=== PATIENT | male | born 1970 ===

== ENCOUNTER 2024-12-24 10:45 | Inpatient (IN) | payer BC, OTHER ==
[~2024-12-24] VITALS: Ht 185.4 cm; Wt 121.0 kg
[2024-12-24] MEDS ORDERED: BUPRENORPHINE-1 EACH SL (12:12)
[2024-12-24] MEDS ORDERED: AMIT75 PO (12:13)
[2024-12-24] MEDS ORDERED: TOPI50 PO (12:13)
[2024-12-24] MEDS ORDERED: Morphine Sulfate 4 MG/1 ML Injection IV ONE (12:20)
[2024-12-24 12:26] LABS: BASOPHILS ABSOLUTE AUTO 0.05 K/mm3 (0.00-0.23); BASOPHILS PERCENT AUTO 1 % (0-2); EOSINOPHILS ABSOLUTE AUTO 0.39 K/mm3 (0.00-0.68); EOSINOPHILS PERCENT AUTO 4 % (0-6); Hematocrit 37.2 % (37.0-53.0); Hemoglobin 12.9 g/dL (13.5-17.5); IMMATURE GRAN ABSOLUTE AUTO 0.03 K/mm3 (0.00-0.10); IMMATURE GRAN PERCENT AUTO 0 % (0-1); LYMPHOCYTES ABSOLUTE AUTO 1.26 K/mm3 (0.84-5.20); LYMPHOCYTES PERCENT AUTO 14 % (21-46); MONOCYTES ABSOLUTE AUTO 0.99 K/mm3 (0.16-1.47); MONOCYTES PERCENT AUTO 11 % (4-13); Mean Corpuscular HGB 32.2 pg (26.0-34.0); Mean Corpuscular HGB Conc 34.7 g/dL (31.5-36.5); Mean Corpuscular Volume 93 fL (80-100); Mean Platelet Volume 9.7 fL (9.1-12.4); NEUTROPHILS ABSOLUTE AUTO 6.31 K/mm3 (1.96-9.15); NEUTROPHILS PERCENT AUTO 70 % (41-73); Platelet Count 183 K/mm3 (150-400); RDW Standard Deviation 47.6 fL (35.1-46.3); Red Blood Cell Count 4.01 M/mm3 (4.30-5.90); White Blood Cell Count 9.03 K/mm3 (4.00-11.30)
[2024-12-24 13:22] LABS: Bilirubin, Total 0.4 mg/dL (0.1-1.0); Bun/Creatinine Ratio 16.7 (12.0-20.0); Calcium, Blood 9.5 mg/dL (8.5-10.1); Creatinine, Blood 1.14 mg/dL (0.60-1.20); Globulin, Blood 3.9 g/dL (2.2-4.0); Potassium, Blood 3.9 mmol/L (3.5-5.5); Total Protein, Blood 7.9 g/dL (6.4-8.2)
[2024-12-24 13:37] LABS: Anti-Xa UFH, PHA Monitoring <0.10 IU/mL; International Normalized Ratio 1.04; Prothrombin Time Results 11.4 Sec (9.7-11.5)
[2024-12-24] MEDS ORDERED: Dose Adjust by Pharmacy XX STA ×2 (13:42→22:58)
[2024-12-24] MEDS ORDERED: Heparin Sodium 5000 Units/ML 1ML MDV IV ONE (13:45)
[2024-12-24] MEDS ORDERED: Heparin Sodium,Porcine/0.5 NS 500 ML IV SCH (13:45)
[2024-12-24] MEDS ORDERED: LORazepam 1 MG Tab PO PRN (14:20)
[2024-12-24] MEDS ORDERED: Prozac20 MG PO (16:32)
[2024-12-24] MEDS ORDERED: Vitamin D1000 UNI1 PO (16:34)
[2024-12-24 16:37] VITALS: BP 124/83
--- NOTE | 2024-12-24 17:02 | NUR ---
PT ARRIVED TO ROOM AT 1630 AOX4 AND COOPERATIVE OF CARE. PT IS INDEPENDENT AND HAS BEEN ORIENTED TO CALL LIGHT AND ROOM. PT REPORTED R LEG PAIN AND BUTT NOTFIED AND STATED MEDICATION WILL BE ADDED TO EMAR. CALL LIGHT IS IN REACH AND WILL CONTINUE TO MONITOR.
[2024-12-24] MEDS ORDERED: OxyCODONE 5 mg/Acetamin 325 mg TABLET PO ONE (17:25)
[2024-12-24] MEDS ORDERED: OxyCODONE 5 mg/Acetamin 325 mg TABLET PO PRN (17:25)
[2024-12-24] MEDS ORDERED: Nicotine 21 MG PATCH TOP SCH (18:15)
[2024-12-24 19:45] VITALS: BP 130/84
[2024-12-24] MEDS ORDERED: Morphine Sulfate 4 MG/1 ML Injection IV PRN (20:15)
[2024-12-24] MEDS ORDERED: Amitriptyline HCl 25 MG Tab PO SCH (21:00)
--- NOTE | 2024-12-24 23:55 | NUR ---
PT INFOMRED THIS NURSE THAT PT HAD EPISODE OF SOB ON SATRUDAY AND IS CONCERNED FOR POSSIBLE PE D/T PT HAVING A DVT. PT IS ASYMPTOMATIC, VSS, HEPARIN INFUSING ORDERED AND MD NOTIFIED OF 'S CONCERN. NO NEW ORDERS, CONTINUE TO MONITOR AT THIS TIME.
[2024-12-25 04:36] VITALS: BP 132/86
[2024-12-25 06:08] LABS: BASOPHILS ABSOLUTE AUTO 0.07 K/mm3 (0.00-0.23); BASOPHILS PERCENT AUTO 1 % (0-2); EOSINOPHILS ABSOLUTE AUTO 0.52 K/mm3 (0.00-0.68); EOSINOPHILS PERCENT AUTO 5 % (0-6); Hematocrit 36.3 % (37.0-53.0); Hemoglobin 12.3 g/dL (13.5-17.5); IMMATURE GRAN ABSOLUTE AUTO 0.05 K/mm3 (0.00-0.10); IMMATURE GRAN PERCENT AUTO 1 % (0-1); LYMPHOCYTES PERCENT AUTO 20 % (21-46); MONOCYTES ABSOLUTE AUTO 0.97 K/mm3 (0.16-1.47); MONOCYTES PERCENT AUTO 10 % (4-13); Mean Corpuscular HGB 31.9 pg (26.0-34.0); Mean Corpuscular HGB Conc 33.9 g/dL (31.5-36.5); Mean Corpuscular Volume 94 fL (80-100); Mean Platelet Volume 9.8 fL (9.1-12.4); NEUTROPHILS ABSOLUTE AUTO 6.21 K/mm3 (1.96-9.15); NEUTROPHILS PERCENT AUTO 64 % (41-73); Platelet Count 206 K/mm3 (150-400); RDW Standard Deviation 48.8 fL (35.1-46.3); Red Blood Cell Count 3.86 M/mm3 (4.30-5.90); White Blood Cell Count 9.72 K/mm3 (4.00-11.30)
[2024-12-25 06:31] LABS: Albumin, Blood 3.6 g/dL (3.4-5.0); Albumin/Globulin Ratio 0.9 (0.8-1.8); Bilirubin, Total 0.4 mg/dL (0.1-1.0); Bun/Creatinine Ratio 13.5 (12.0-20.0); Calcium, Blood 8.9 mg/dL (8.5-10.1); Creatinine, Blood 1.04 mg/dL (0.60-1.20); Globulin, Blood 3.8 g/dL (2.2-4.0); Potassium, Blood 3.4 mmol/L (3.5-5.5); Total Protein, Blood 7.4 g/dL (6.4-8.2)
[2024-12-25] MEDS ORDERED: Dose Adjust by Pharmacy XX STA ×2 (06:44→19:28)
--- NOTE | 2024-12-25 07:41 | NUR ---
SUPERVISOR METAL CANS SUMMARY: PT ADMITTED FOR RLE DVT. SEE PREVIOUS NOTE RE CONCERN OVER SOB INCIDENT ON TUESDAY. PT RESPIRATIONS WNL AND SATS ON ROOM AIR ABOVE 92%. HEPARIN INFUSING ORDERED. CONFIRMED ORDER WITH DAY SHIFT NURSE AT SHIFT REPORT. PT MEDICATED T/O SHIFT FOR RLE PAIN. PT NOTED TO HAVE INCREASE IN PAIN AND NEW ORDER OBTAINED FOR MORPHINE 1-2MG IV Q4H PRN SEVERE PAIN. PT RATES PAIN AT 7-8/10. PT REPORTS MORPHINE IS EFFECTIVE BUT FEELS THAT HIS PAIN HAS WORSENED. PT EXPRESSES CONCERN OVER WORSENED PAIN AND DESIRE FOR PT TO GO GO [place] TODAY. DAY SHIFT RN INFORMED OF THIS DURING SHIFT CHANGE. PT NPO AT [facility] IN ANTICIPATION OF HAVING THROMBECTOMY. PT INDEPENDENT IN ROOM WITH CARES. BED IN LOWEST POSITION. CARES ONGOING ORDERED.
[2024-12-25 08:46] VITALS: BP 108/71
[2024-12-25] MEDS ORDERED: Topiramate 25 MG Tab PO SCH (09:00)
[2024-12-25] MEDS ORDERED: TOPIRAMATE PO SCH (09:00)
[2024-12-25] MEDS ORDERED: FLUoxetine HCL 20 MG CAP PO SCH (09:00)
[2024-12-25] MEDS ORDERED: FUROSEMIDE20 MG PO (10:52)
[2024-12-25] MEDS ORDERED: BRIXADI128 MG/0.3 SC (11:25)
[2024-12-25] MEDS ORDERED: HYDROmorphone HCl/Pf 1MG SYR IV PRN (16:10)
--- NOTE | 2024-12-25 17:13 | NUR ---
NO ACUTE CHANGES THIS SHIFT. PT HAS BEEN PAINFUL TO RLE. TREATED PER EMAR. PLAN FOR PT TO HAVE PROCEDURE TOMORROW AND WILL BE NPO AT MIDNIGHT. PT IS ALERT AND ORIENTED X4, INDEPENDENT, CALLS FOR ASSISTANCE NEEDED.
[2024-12-25 19:16] VITALS: BP 123/63
[2024-12-26 03:02] VITALS: BP 113/68
[2024-12-26 05:13] LABS: BASOPHILS ABSOLUTE AUTO 0.08 K/mm3 (0.00-0.23); BASOPHILS PERCENT AUTO 1 % (0-2); EOSINOPHILS ABSOLUTE AUTO 0.66 K/mm3 (0.00-0.68); EOSINOPHILS PERCENT AUTO 7 % (0-6); Hematocrit 39.7 % (37.0-53.0); Hemoglobin 13.1 g/dL (13.5-17.5); IMMATURE GRAN ABSOLUTE AUTO 0.06 K/mm3 (0.00-0.10); IMMATURE GRAN PERCENT AUTO 1 % (0-1); LYMPHOCYTES ABSOLUTE AUTO 2.37 K/mm3 (0.84-5.20); LYMPHOCYTES PERCENT AUTO 24 % (21-46); MONOCYTES ABSOLUTE AUTO 1.31 K/mm3 (0.16-1.47); MONOCYTES PERCENT AUTO 13 % (4-13); Mean Corpuscular Volume 97 fL (80-100); Mean Platelet Volume 9.6 fL (9.1-12.4); NEUTROPHILS ABSOLUTE AUTO 5.56 K/mm3 (1.96-9.15); NEUTROPHILS PERCENT AUTO 55 % (41-73); Platelet Count 210 K/mm3 (150-400); RDW Coefficient Variation 14.4 % (11.7-14.2); RDW Standard Deviation 51.3 fL (35.1-46.3); Red Blood Cell Count 4.09 M/mm3 (4.30-5.90); White Blood Cell Count 10.04 K/mm3 (4.00-11.30)
--- NOTE | 2024-12-26 05:35 | NUR ---
PATIENT NPO AT MIDNIGHT EXCEPT FOR SIP WITH MEDS. PAIN MANAGED WITH PRNS FREQUENTLY. LEFT LEG REMAIN UNCHANGED AND PEDAL PULSE 2+
[2024-12-26] MEDS ORDERED: Dose Adjust by Pharmacy XX STA (05:55)
[2024-12-26 07:40] VITALS: BP 111/72
--- NOTE | 2024-12-26 13:09 | NUR ---
PER SIN KITCHEN. DOES NOT PLAN ON CONTINUING WITH PROCEDURE AT THIS TIME. DR. BAINS NOTIFIED, OK TO ORDER DIET FROM PT. DR. BAINS TO FOLLOW UP WITH DR. DAVIS.
[2024-12-26] MEDS ORDERED: Apixaban 5 MG Tab PO ONE (16:00)
[2024-12-26] MEDS ORDERED: ELIQUIS5 M2 PO (16:27)
[2024-12-26] MEDS ORDERED: Percocet 5-3251 EACH PO (16:28)
--- NOTE | 2024-12-26 18:05 | NUR ---
PT DISCHARGED HOME WITH SPOUSE AT BEDSIDE. DISCHARGE INSTRUCTIONS DISCUSSED WITH PT AND SPOUSE, EMPHASIZED RISK OF BLEEDING DUE TO NEW BLOOD THINNER MEDICAITONS. PT TO FOLLOW UP WITH PCP AND DR. DAVIS. MEDICATION FAXED TO [facility] REQUESTED.
[2024-12-28 10:54] LABS: FACTOR V LEIDEN F5 R506Q MUTAT Negative; FACV SPECIMEN Whole Blood
== END 2024-12-26 17:51 | disposition home or self-care (01) | DRG 301 ==
LOC: ER 10:45 → MEDS 10:46
PROVIDERS: Emergency Medicine; ADMIT Hospitalist
DX: I82.421 Acute embolism and thrombosis of right iliac vein (principal); G43.909 Migraine, unspecified, not intractable, without status migrainosus; F41.9 Anxiety disorder, unspecified; R63.4 Abnormal weight loss; F19.10 Other psychoactive substance abuse, uncomplicated; Z68.34 Body mass index [BMI] 34.0-34.9, adult; Z79.899 Other long term (current) drug therapy; Z88.8 Allergy status to other drugs, medicaments and biological substances; Z87.891 Personal history of nicotine dependence; Z87.19 Personal history of other diseases of the digestive system
CPT/HCPCS: 36415; 80053; 81241; 85025; 85520; 85610; 85730; 93971; 96365; 96375; 96376; 99285-25; A9270; G0378; J1171; J1644; J2270

== ENCOUNTER 2025-01-03 14:37 | Observation (INO) | payer OTHER ==
[~2025-01-03] VITALS: Ht 185.4 cm; Wt 122.5 kg
[~2025-01-03 14:37] MED LIST: AMIT75 PO; BRIXADI128 MG/0.3 SC; BUPRENORPHINE-1 EACH SL; ELIQUIS5 M2 PO; FUROSEMIDE20 MG PO; Percocet 5-3251 EACH PO; Prozac20 MG PO; TOPI50 PO; Vitamin D1000 UNI1 PO
[2025-01-03 15:19] LABS: BASOPHILS ABSOLUTE AUTO 0.09 K/mm3 (0.00-0.23); BASOPHILS PERCENT AUTO 1 % (0-2); EOSINOPHILS ABSOLUTE AUTO 0.57 K/mm3 (0.00-0.68); EOSINOPHILS PERCENT AUTO 8 % (0-6); Hemoglobin 12.3 g/dL (13.5-17.5); IMMATURE GRAN ABSOLUTE AUTO 0.06 K/mm3 (0.00-0.10); IMMATURE GRAN PERCENT AUTO 1 % (0-1); LYMPHOCYTES ABSOLUTE AUTO 2.28 K/mm3 (0.84-5.20); LYMPHOCYTES PERCENT AUTO 30 % (21-46); MONOCYTES ABSOLUTE AUTO 0.73 K/mm3 (0.16-1.47); MONOCYTES PERCENT AUTO 10 % (4-13); Mean Corpuscular HGB 32.5 pg (26.0-34.0); Mean Corpuscular HGB Conc 33.2 g/dL (31.5-36.5); Mean Corpuscular Volume 98 fL (80-100); Mean Platelet Volume 8.7 fL (9.1-12.4); NEUTROPHILS ABSOLUTE AUTO 3.89 K/mm3 (1.96-9.15); NEUTROPHILS PERCENT AUTO 51 % (41-73); Platelet Count 395 K/mm3 (150-400); RDW Standard Deviation 50.6 fL (35.1-46.3); Red Blood Cell Count 3.78 M/mm3 (4.30-5.90); White Blood Cell Count 7.62 K/mm3 (4.00-11.30)
[2025-01-03 15:39] LABS: Albumin, Blood 3.6 g/dL (3.4-5.0); Albumin/Globulin Ratio 0.9 (0.8-1.8); Bilirubin, Total 0.2 mg/dL (0.1-1.0); Bun/Creatinine Ratio 10.5 (12.0-20.0); Calcium, Blood 8.7 mg/dL (8.5-10.1); Creatinine, Blood 0.86 mg/dL (0.60-1.20); Globulin, Blood 3.8 g/dL (2.2-4.0); Potassium, Blood 3.6 mmol/L (3.5-5.5); Total Protein, Blood 7.4 g/dL (6.4-8.2)
[2025-01-03] MEDS ORDERED: LORazepam 2 MG/ML 1ML Injection IV ONE (17:20)
[2025-01-03] MEDS ORDERED: Acetaminophen 325 MG TABLET PO PRN ×2 (17:25→18:15)
[2025-01-03] MEDS ORDERED: Ondansetron HCl 2 MG / ML 2ML Vial IV PRN (17:30)
[2025-01-03] MEDS ORDERED: Naloxone HCl 0.4MG / ML 1ML Vial IV PRN ×2 (18:15)
[2025-01-03] MEDS ORDERED: OxyCODONE HCL 5 MG TAB PO PRN (18:15)
[2025-01-03] MEDS ORDERED: FentaNYL Citrate 50 MCG/ML 2 ML Injection IV PRN (18:20)
[2025-01-03 18:45] VITALS: BP 124/79
--- NOTE | 2025-01-03 19:14 | NUR ---
SHIFT SUMMARY PT A&OX4. PT ADMITTED DUE TO DVT. PT ON TELE. PT TRANSFERRED SELF FROM ER WHEELCHAIR TO BED. PT ORIENTED TO ROOM/CALL LIGHT/ FALL PRECAUTIONS. VSS. PT NPO FOR R THROMBECTOMY TOMORROW. QUICK ADMIT COMPLETE, WILL LET NIGHT RN KNOW ADMISSION ASSESS NEEDS COMPLETED. PT ON TELE. PT Q6 CBG. PT IN BED, BED IN LOWEST POSITION, CALL LIGHT IN REACH.
[2025-01-03 19:16] VITALS: BP 128/74
[2025-01-03] MEDS ORDERED: LORazepam 1 MG Tab PO ONE (20:50)
[2025-01-03] MEDS ORDERED: Docusate Sodium 100 MG Cap PO SCH (21:00)
[2025-01-03] MEDS ORDERED: Apixaban 5 MG Tab PO SCH (21:00)
[2025-01-03 23:10] VITALS: BP 139/91
[2025-01-04] VITALS (13 sets, daily range): BP systolic 122–183; BP diastolic 72–102
[2025-01-04] MEDS ORDERED: Lactated Ringer's 1,000 ML IV SCH
[2025-01-04] MEDS ORDERED: OxyCODONE 5 mg/Acetamin 325 mg TABLET PO PRN (01:05)
[2025-01-04 05:23] LABS: BASOPHILS ABSOLUTE AUTO 0.07 K/mm3 (0.00-0.23); BASOPHILS PERCENT AUTO 1 % (0-2); EOSINOPHILS ABSOLUTE AUTO 0.55 K/mm3 (0.00-0.68); EOSINOPHILS PERCENT AUTO 9 % (0-6); Hematocrit 33.5 % (37.0-53.0); Hemoglobin 11.3 g/dL (13.5-17.5); IMMATURE GRAN ABSOLUTE AUTO 0.03 K/mm3 (0.00-0.10); IMMATURE GRAN PERCENT AUTO 1 % (0-1); LYMPHOCYTES ABSOLUTE AUTO 2.22 K/mm3 (0.84-5.20); LYMPHOCYTES PERCENT AUTO 35 % (21-46); MONOCYTES ABSOLUTE AUTO 0.74 K/mm3 (0.16-1.47); MONOCYTES PERCENT AUTO 12 % (4-13); Mean Corpuscular HGB 32.5 pg (26.0-34.0); Mean Corpuscular HGB Conc 33.7 g/dL (31.5-36.5); Mean Corpuscular Volume 96 fL (80-100); Mean Platelet Volume 8.6 fL (9.1-12.4); NEUTROPHILS PERCENT AUTO 43 % (41-73); Platelet Count 360 K/mm3 (150-400); RDW Standard Deviation 49.5 fL (35.1-46.3); Red Blood Cell Count 3.48 M/mm3 (4.30-5.90); White Blood Cell Count 6.31 K/mm3 (4.00-11.30)
[2025-01-04 05:55] LABS: Albumin, Blood 2.9 g/dL (3.4-5.0); Albumin/Globulin Ratio 0.9 (0.8-1.8); Bilirubin, Total 0.2 mg/dL (0.1-1.0); Bun/Creatinine Ratio 12.7 (12.0-20.0); Calcium, Blood 8.5 mg/dL (8.5-10.1); Creatinine, Blood 0.87 mg/dL (0.60-1.20); Globulin, Blood 3.4 g/dL (2.2-4.0); Magnesium, Blood 2.2 mg/dL (1.6-2.4); Potassium, Blood 3.7 mmol/L (3.5-5.5); Total Protein, Blood 6.3 g/dL (6.4-8.2)
[2025-01-04] MEDS ORDERED: Buprenorphine HCL/Naloxone HCL 8MG-2MG Tab SL PRN (05:55)
--- NOTE | 2025-01-04 06:43 | NUR ---
pt admit last night for dvt/ pain rle managed with prns. pt asks multi times to eat. educated on the need to be npo. pt verbalized understanding
--- NOTE | 2025-01-04 07:37 | NUR ---
AM ASSESSMENT NOTE: PATIENT ADMITTED 01/04 FOR DVT TO [facility]. PER ED NOTE, DR. DAVIS (IR) WAS CONSULTED 01/03/25. PATIENT RECEIVED PO ELIQUIS DOSE LAST NIGHT. PATIENT CURRENTLY NPO FOR POSSIBLE THROMBECTOMY PER NOC RN. THIS RN SPOKE EDY HILLS VIA [facility] AT 0730 TO INQUIRE PLAN OF CARE. PER EDY, PATIENT IT'S NOT ON THE LIST FOR PROCEDURE TODAY, BUT SHE WILL FURTHER INVESTIGATE AND CALL THIS RN BACK FOR FURTHER DETAILS. FRATERNITY ADVISER NERY ARE AWARE OF THIS CONCERN.
[2025-01-04] MEDS ORDERED: Topiramate 25 MG Tab PO SCH (09:00)
[2025-01-04] MEDS ORDERED: FLUoxetine HCL 20 MG CAP PO SCH (09:00)
[2025-01-04] MEDS ORDERED: Cholecalciferol 1000 Unit Tablet (=25MCG) PO SCH (09:00)
[2025-01-04] MEDS ORDERED: LORazepam 1 MG Tab PO PRN (09:20)
[2025-01-04 10:49] LABS: Anti-Xa UFH, PHA Monitoring 0.36 IU/mL; International Normalized Ratio 1.01; Prothrombin Time Results 11.1 Sec (9.7-11.5)
[2025-01-04] MEDS ORDERED: Heparin Sodium,Porcine/0.5 NS 500 ML IV SCH (10:55)
--- NOTE | 2025-01-04 15:04 | NUR ---
Spiritual care referral Mariano (pt) is awake and alert and lying up in his bed awaiting a procedure for blood clots in his leg. He is joined at bedside by his spouse Rosey. Life review conducted. 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 Pt's spouse has recently been diagnosed with breast cancer and on top of other complications is feeling overwhelmed. Provided encouragement and compassionate listening. Spiritual assessment conducted. Pt and spouse have been approached by [facility] missionaries and are currently investigating the alley further. Provided suggestion for local spiritual community known to sales agent pest control service to recovering addicts ([employer]) Addressed social stigmas surrounding drug use and affirmed them in their journey of recovery. Spouse appears more calm following discussion. Prayed with pt while spouse was on the phone, he verbally expressed gratitude for the visit and the prayer.
--- NOTE | 2025-01-04 17:49 | NUR ---
SHIFT SUMMARY: PATIENT A/OX4, ANXIOUS, PLEASANT AND COOPERATIVE c CARE. PATIENT MEDICATED FOR R LEG PAIN AND FOR ANXIETY PER EMAR c GOOD EFFECT. PATIENT DENIES CP/PRESSURE, SOB, N/V AND DIZZINESS. PATIENT ON TELE, SR HR IN THE 70'S BPM c 1ST DHB. PATIENT ON HEPARIN GTT AT 18 U/KG/HR-34.9 MLS/HR., RATE CONTROLLED BY PHARMACIST. PATIENT STILL NPO FOR POSSIBLE R THROMBECTOMY SOMETIMES DR. TIFFANIE VU SPOKE c PATIENT AND SPOUSE c PLAN OF CARE, THEY VERBALIZED UNDERSTANDING AND AGREED c THE PROCEDURE. VITAL SIGNS REVIEWED. SPOUSE AT BEDSIDE T/O SHIFT. CALL LIGHT IN REACH.
[2025-01-04] MEDS ORDERED: Dose Adjust by Pharmacy XX STA ×2 (18:06→23:04)
[2025-01-04] MEDS ORDERED: NS 1,000 ML IV ONE ×2 (19:26→19:39)
[2025-01-04] MEDS ORDERED: Midazolam HCl 1MG / ML 2ML Vial ONE (19:26)
[2025-01-04] MEDS ORDERED: FentaNYL Citrate 50 MCG/ML 2 ML Injection ONE (19:26)
[2025-01-04] MEDS ORDERED: Heparin Sodium 1000 Units/ML 10ML MDV ONE ×2 (19:39→20:11)
--- NOTE | 2025-01-04 20:45 | NUR ---
PATIENT BROUGHT TO FLOOR BY IR STAFF. BEDSIDE REPORT RECEIVED. PATIENT AWAKE ALERT AND DENIES PAIN. FLOW STASIS LOCATED ON BACK OF RIGHT KNEE CLEAN DRY INTACT AND COVERED WITH CLEAR TEGADERM. PEDAL PULSES 2+. CAP REFILL <3, POST OP VITALS STARTED. WILL CONTINUE TO MONITOR 2155- TT DR ABOUT POST OP ORDERS, NEW ORDERS RECEIVED. PAIN MED GIVEN FOR INCISIONAL PAIN. FLOW STASIS CDI 2130 ATIVAN GIVEN FOR ANXIETY 0350- PRN GIVEN FOR INCISIONAL PAIN
[2025-01-04] MEDS ORDERED: Amitriptyline HCl 25 MG Tab PO SCH (21:00)
[2025-01-05 03:47] VITALS: BP 123/68
[2025-01-05 06:03] LABS: BASOPHILS ABSOLUTE AUTO 0.09 K/mm3 (0.00-0.23); BASOPHILS PERCENT AUTO 1 % (0-2); EOSINOPHILS ABSOLUTE AUTO 0.57 K/mm3 (0.00-0.68); EOSINOPHILS PERCENT AUTO 6 % (0-6); Hematocrit 36.5 % (37.0-53.0); Hemoglobin 12.4 g/dL (13.5-17.5); IMMATURE GRAN ABSOLUTE AUTO 0.13 K/mm3 (0.00-0.10); IMMATURE GRAN PERCENT AUTO 1 % (0-1); LYMPHOCYTES ABSOLUTE AUTO 2.16 K/mm3 (0.84-5.20); LYMPHOCYTES PERCENT AUTO 24 % (21-46); MONOCYTES ABSOLUTE AUTO 0.87 K/mm3 (0.16-1.47); MONOCYTES PERCENT AUTO 10 % (4-13); Mean Corpuscular HGB 32.5 pg (26.0-34.0); Mean Corpuscular Volume 96 fL (80-100); Mean Platelet Volume 8.8 fL (9.1-12.4); NEUTROPHILS ABSOLUTE AUTO 5.23 K/mm3 (1.96-9.15); NEUTROPHILS PERCENT AUTO 58 % (41-73); Platelet Count 369 K/mm3 (150-400); RDW Coefficient Variation 13.8 % (11.7-14.2); RDW Standard Deviation 48.1 fL (35.1-46.3); Red Blood Cell Count 3.82 M/mm3 (4.30-5.90); White Blood Cell Count 9.05 K/mm3 (4.00-11.30)
[2025-01-05] MEDS ORDERED: Dose Adjust by Pharmacy XX STA (06:36)
[2025-01-05 06:38] LABS: Albumin, Blood 3.1 g/dL (3.4-5.0); Albumin/Globulin Ratio 0.8 (0.8-1.8); Bilirubin, Total 0.2 mg/dL (0.1-1.0); Bun/Creatinine Ratio 14.7 (12.0-20.0); Calcium, Blood 8.5 mg/dL (8.5-10.1); Creatinine, Blood 0.89 mg/dL (0.60-1.20); Globulin, Blood 3.7 g/dL (2.2-4.0); Potassium, Blood 3.8 mmol/L (3.5-5.5); Total Protein, Blood 6.8 g/dL (6.4-8.2)
--- NOTE | 2025-01-05 06:38 | NUR ---
PATIENT RAN HEPARIN DRIP ALL NIGHT LONG WITH NO INTERUPTIONS. SEE IV INPUT FOR VOLUME TOTALS.
[2025-01-05 07:52] VITALS: BP 138/73
--- NOTE | 2025-01-05 08:46 | NUR ---
HEPARIN DISCONTINUATION NOTE: HEPARIN GTT DC'D AT 0836 AND PO ELIQUIS GIVEN PER ORDER.
[2025-01-05] MEDS ORDERED: Apixaban 5 MG Tab PO SCH (09:00)
[2025-01-05] MEDS ORDERED: CLON.5 PO (12:52)
--- NOTE | 2025-01-05 13:29 | NUR ---
SHIFT/DISCHARGE SUMMARY: PATIENT HAS HAD NO NEW CHANGES THIS SHIFT. PATIENT HAD THROMBECTOMY DONE BY IR LAST NIGHT c FLOWSTASIS DEVICE PLACED TO BACK OF R KNEE. FLOWSTASIS DEVICE DC'D AT 1115, CLEANSED c CHLORHEXIDINE AND COVERED c CLEAR DRESSING BY THIS RN manuel YEE, CERTIFIED PHLEBOTOMIST SUPERVISION AND GUIDANCE ALONG c MANAGING EDITOR'S MARC MANSFIELD, DORIS MORALES AND JAY OGDEN, RN. PATIENT TOLERATED WELL, T/O THE PROCESS. PATIENT MEDICATED FOR R LEG PAIN AND ANXIETY MEDS PER EMAR c GOOD EFFECT. PATIENT HAS HD NO CHANGES ON TELE, SR HR IN THE HIGH 80'S BPM, DENIES CP/PRESSURE, SOB, N/V AND DIZZINESS. PATIENT RECEIVED SCHEDULED MEDS PER EMAR. VITAL SIGNS REVIEWED. PIV DC'D. PATIENT A/OX4, PLEASANT AND COOPERATIVE c CARE. PATIENT DRESSING TO BACK OF R KNEE CLEAN c TINY AMT OF BLOOD TO SITE AND INTACT. PATIENT DISCHARGE HOME. DISCHARGE INSTRUCTIONS PACKET GIVEN TO PATIENT/SPOUSE. PATIENT AND SPOUSE EDUCATED ON ADMITTING DX'S OF DVT, S/S, SLEF CARE, COMPRESSION STOCKING, NEW RX AND TO F/U c PCP. PATIENT AND SPOUSE VERBALIZED UNDERSTANDING AND NO FURTHER QUESTIONS. RX WAS FAXED TO PATIENT PREFERRED PHARMACY [facility] AND GIVEN HARD SCRIPT FOR CLONAZEPAM. ALL PERSONAL BELONGINGS WERE SENT c PATIENT. PATIENT LEFT THE ROOM AT 1308, ACCOMPANIED BY SPOUSE. PATIENT DECLINED TO BE TRANSPORTED VIA W/C, AND REQUESTED TO WALK.
== END 2025-01-05 13:20 | disposition home or self-care (01) ==
LOC: ER 14:37 → MEDS 17:24
PROVIDERS: Family Medicine; Physician Assistant; ADMIT Student in an Organized Health Care Education/Training Program
DX: I82.411 Acute embolism and thrombosis of right femoral vein (principal); I82.431 Acute embolism and thrombosis of right popliteal vein; I82.451 Acute embolism and thrombosis of right peroneal vein; I82.441 Acute embolism and thrombosis of right tibial vein; I82.811 Embolism and thrombosis of superficial veins of right lower extremity; F11.11 Opioid abuse, in remission; F41.9 Anxiety disorder, unspecified; F32.9 Major depressive disorder, single episode, unspecified; Z87.891 Personal history of nicotine dependence; Z79.01 Long term (current) use of anticoagulants; Z79.899 Other long term (current) drug therapy; Z88.5 Allergy status to narcotic agent; Z98.84 Bariatric surgery status
CPT/HCPCS: 36415; 37187; 75820; 76937; 80053; 82947; 83735; 85025; 85520; 85610; 85730; 93971; 96365; 96366; 96374; 96375; 96376; 99152; 99153; 99285-25; A9270; C1757; C1769; C1887; C1894; G0378; J1644; J2060; J2250; J3010; J7030; J7120; Q9967

== ENCOUNTER 2025-01-26 02:20 | Emergency (ER) | payer OTHER ==
[~2025-01-26] VITALS: Ht 185.4 cm; Wt 122.5 kg
[~2025-01-26 02:20] MED LIST changes: +CLON.5 PO
[2025-01-26] MEDS ORDERED: DELTASONE20 MG PO ×2 (04:41→09:48)
[2025-01-26] MEDS ORDERED: Benadryl Itch28.3 G1 TOP ×2 (04:41→09:48)
== END 2025-01-26 05:02 | disposition home or self-care (01) ==
LOC: ER 02:20
DX: L23.7 Allergic contact dermatitis due to plants, except food (principal); Z23 Encounter for immunization; Z79.899 Other long term (current) drug therapy; Z79.01 Long term (current) use of anticoagulants; Z59.89 Other problems related to housing and economic circumstances; Z88.8 Allergy status to other drugs, medicaments and biological substances
CPT/HCPCS: 90471; 90715; 99282-25; A9270; J7512

== ENCOUNTER 2025-02-13 17:20 | Emergency (ER) | payer OTHER ==
[~2025-02-13] VITALS: Ht 185.4 cm; Wt 129.3 kg
[~2025-02-13 17:20] MED LIST changes: +Benadryl Itch28.3 G1 TOP; +DELTASONE20 MG PO
[2025-02-13 18:23] LABS: BASOPHILS ABSOLUTE AUTO 0.08 K/mm3 (0.00-0.23); BASOPHILS PERCENT AUTO 1 % (0-2); EOSINOPHILS ABSOLUTE AUTO 0.67 K/mm3 (0.00-0.68); EOSINOPHILS PERCENT AUTO 8 % (0-6); Hematocrit 37.6 % (37.0-53.0); Hemoglobin 12.7 g/dL (13.5-17.5); IMMATURE GRAN ABSOLUTE AUTO 0.03 K/mm3 (0.00-0.10); IMMATURE GRAN PERCENT AUTO 0 % (0-1); LYMPHOCYTES ABSOLUTE AUTO 2.01 K/mm3 (0.84-5.20); LYMPHOCYTES PERCENT AUTO 24 % (21-46); MONOCYTES ABSOLUTE AUTO 0.71 K/mm3 (0.16-1.47); MONOCYTES PERCENT AUTO 9 % (4-13); Mean Corpuscular HGB Conc 33.8 g/dL (31.5-36.5); Mean Corpuscular Volume 95 fL (80-100); NEUTROPHILS ABSOLUTE AUTO 4.86 K/mm3 (1.96-9.15); NEUTROPHILS PERCENT AUTO 58 % (41-73); NRBC ABSOLUTE 0.00 K/mm3 (0.00-0.02); NRBC Auto 0.0 /100 WBC (0.0-0.2); Platelet Count 308 K/mm3 (150-400); RDW Coefficient Variation 13.3 % (11.7-14.2); RDW Standard Deviation 47.4 fL (35.1-46.3)
[2025-02-13 19:07] LABS: Alanine Aminotransfer (ALT/SGP 22.0 U/L (12-78); Albumin, Blood 3.4 g/dL (3.4-5.0); Albumin/Globulin Ratio 0.8 (0.8-1.8); Anion Gap 7.0 mmol/L (3-11); Aspartate Aminotrans (AST/SGOT 19.0 U/L (12-37); Bilirubin, Total 0.5 mg/dL (0.1-1.0); Blood Urea Nitrogen 9.0 mg/dL (8-24); CO2, Blood 30.0 mmol/L (21-32); Calcium, Blood 8.5 mg/dL (8.5-10.1); Chloride, Blood 104.0 mmol/L (98-108); Creatinine, Blood 0.97 mg/dL (0.60-1.20); Globulin, Blood 4.2 g/dL (2.2-4.0); Glucose, Blood 113.0 mg/dL (70-99); Potassium, Blood 3.2 mmol/L (3.5-5.5); Sodium, Blood 138.0 mmol/L (136-145); Total Protein, Blood 7.6 g/dL (6.4-8.2)
[2025-02-13] MEDS ORDERED: POTA10T PO (20:00)
[2025-02-13] MEDS ORDERED: FURO20 PO (20:00)
== END 2025-02-13 20:17 | disposition home or self-care (01) ==
LOC: ER 17:20
PROVIDERS: Student in an Organized Health Care Education/Training Program
DX: R60.0 Localized edema (principal); E87.6 Hypokalemia; T45.516A Underdosing of anticoagulants, initial encounter; Z91.141 Patient's other noncompliance with medication regimen due to financial hardship; Z59.02 Unsheltered homelessness; Z86.718 Personal history of other venous thrombosis and embolism; Z88.5 Allergy status to narcotic agent; Z79.01 Long term (current) use of anticoagulants; Z79.52 Long term (current) use of systemic steroids; Z79.899 Other long term (current) drug therapy
CPT/HCPCS: 80053; 85025; 93971; 99284-25